=== PATIENT | female | born 1995 | race Hispanic/Latino ===

== ENCOUNTER 2023-03-29 16:45 | Observation (INO) | payer BC ==
[~2023-03-29] VITALS: Ht 152.4 cm; Wt 86.2 kg
[2023-03-29] MEDS ORDERED: CELESTONE SOLUSPAN 6 MG/ML 5ML VIAL IM SCH (17:00)
== END 2023-03-29 17:50 | disposition home or self-care (01) ==
LOC: LDH 16:45
PROVIDERS: ADMIT Obstetrics & Gynecology; ATTEND Obstetrics & Gynecology
DX: O36.8330 Maternal care for abnormalities of the fetal heart rate or rhythm, third trimester, not applicable or unspecified (principal); O24.419 Gestational diabetes mellitus in pregnancy, unspecified control; O10.913 Unspecified pre-existing hypertension complicating pregnancy, third trimester; O26.893 Other specified pregnancy related conditions, third trimester; R10.9 Unspecified abdominal pain; Z3A.30 30 weeks gestation of pregnancy
CPT/HCPCS: 59025; 96372; G0378; G0379; J0702

== ENCOUNTER 2023-03-30 16:59 | Observation (INO) | payer BC ==
[~2023-03-30] VITALS: Ht 152.4 cm; Wt 85.3 kg
[2023-03-30] MEDS ORDERED: CELESTONE SOLUSPAN 6 MG/ML 5ML VIAL IM SCH (17:15)
== END 2023-03-30 18:00 | disposition home or self-care (01) ==
LOC: LDH 16:59
PROVIDERS: ADMIT Obstetrics & Gynecology; ATTEND Obstetrics & Gynecology
DX: O24.419 Gestational diabetes mellitus in pregnancy, unspecified control (principal); O10.913 Unspecified pre-existing hypertension complicating pregnancy, third trimester; Z3A.30 30 weeks gestation of pregnancy
CPT/HCPCS: 59025; 96372; G0378; G0379

== ENCOUNTER 2023-05-10 16:22 | Observation (INO) | payer BC | END 2023-05-10 17:22 | disposition home or self-care (01) | LOC: LDH 16:22 | PROVIDERS: ADMIT Obstetrics & Gynecology; ATTEND Obstetrics & Gynecology | DX: O36.8330 Maternal care for abnormalities of the fetal heart rate or rhythm, third trimester, not applicable or unspecified (principal); O24.419 Gestational diabetes mellitus in pregnancy, unspecified control; Z3A.36 36 weeks gestation of pregnancy | CPT/HCPCS: 59025; 76819; G0379; G0378 ==